=== PATIENT | male | born 1960 | race African-American/Black ===

== ENCOUNTER 2017-04-03 15:01 | Inpatient (IN) | payer OTHER ==
[2017-04-03 15:45] LABS: #Lymphocytes 1.1 thou/uL (1.20-3.40); #Monocytes 0.5 thou/uL (0.11-0.59); #Neutrophils 5.9 thou/uL (1.40-6.50); %Basophils 0.3 % (0.0-1.0); %Eosinophils 0.5 % (0.0-10.0); %Monocytes 6.4 % (0.0-10.0); Hematocrit 41.5 % (42.0-52.0); Mean Platelet Volume 8.7 fL (7.4-10.4); Red Blood Cell (RBC) Count 3.72 mill/uL (4.70-6.10); White Blood Cell (WBC) Count 7.6 thou/uL (4.8-10.8)
[2017-04-03 16:12] LABS: ALT (SGPT) 33 U/L (8-55); AST (SGOT) 276 U/L (5-34); Alkaline Phosphatase 494 U/L (40-150); Anion Gap 22 mmol/L (10-20); BUN (Urea Nitrogen) 9 mg/dL (8.4-25.7); Bilirubin, Total 18.3 mg/dL (0.2-1.2); Calc. Creatinine Clearance 0 mL/min (70-130); Calcium 9.2 mg/dL (7.8-10.44); Carbon Dioxide 25 mmol/L (22-29); Chloride 95 mmol/L (98-107); Estimated GFR-MDRD Greater than 90; Globulin 4.7 g/dL (2.4-3.5); Lipase 46 U/L (8-78)
[2017-04-03] MEDS ORDERED: Ondansetron ODT 8 MG TAB ONE (16:30)
[2017-04-03 17:06] LABS: PTT 38.5 SEC (22.9-36.1); Prothrombin Time 15.6 SEC (12.0-14.7)
[2017-04-03] MEDS ORDERED: Piperacillin/Tazobactam 4.5 GM VIAL ONE (19:07)
[2017-04-03] MEDS ORDERED: Lidocaine 1% (PF) 30 ML VIAL ONE (20:27)
[2017-04-03 22:45] LABS: BF Reference Range Comment Note:
[2017-04-03 23:00] LABS: Troponin I 0.037 ng/mL (< 0.028)
[2017-04-03 23:06] LABS: BF Color Brown
[2017-04-03 23:07] LABS: RBC Count-Automated 18000 /cumm
[2017-04-03 23:20] LABS: Number Cells Counted-Fluids 100
--- NOTE | 2017-04-03 23:25 | ULT ---
RIGHT UPPER QUADRANT ULTRASOUND: 04/03/17 INDICATION: Jaundice with abdominal pain. COMPARISON: Prior CT evaluation dated 07/09/15 and right upper quadrant ultrasound dated 10/23/14. FINDINGS: There is coarse echotexture of the liver with a nodular contour consistent with changes of cirrhosis . No focal hepatic lesion is evident. Small amount of gallbladder sludge is present within the gallbladder. No sonographic Dalal's sign i s reported. Common bile duct measures 4.9 mm. The pancreas is obscured. The right kidney measuring 9.9 x 4.9 x 4.2 cm. Mild ascites is seen within the abdomen. Spectral doppler evaluation of the main portal vein demonstrated some hepatopedal flow. IMPRESSION: 1. Findings of cirrhosis with mild ascites. 2. Hepatopedal flow within the main portal vein. 3. Small amount of gallbladder sludge. POS: [facility]
[2017-04-03 23:35] LABS: #Lymphocytes 0.9 thou/uL (1.20-3.40); #Monocytes 0.5 thou/uL (0.11-0.59); #Neutrophils 5.9 thou/uL (1.40-6.50); %Basophils 0.1 % (0.0-1.0); %Eosinophils 0.2 % (0.0-10.0); %Lymphocytes 12.4 % (21.0-51.0); %Monocytes 7.2 % (0.0-10.0); Hematocrit 36.6 % (42.0-52.0); Mean Platelet Volume 8.3 fL (7.4-10.4); Red Blood Cell (RBC) Count 3.29 mill/uL (4.70-6.10); White Blood Cell (WBC) Count 7.3 thou/uL (4.8-10.8)
[2017-04-04] MEDS ORDERED: Diazepam 10 MG/2 ML SYRINGE ONE (00:37)
[2017-04-04] MEDS ORDERED: ISOVUE-370 76%-LOCM 1 ML ONE (01:26)
[2017-04-04 01:58] LABS: Troponin I 0.032 ng/mL (< 0.028)
[2017-04-04 02:29] LABS: BF Reference Range Comment Note:
[2017-04-04 02:31] LABS: Bilirubin Large (Negative); Blood, Urine Negative (Negative); Glucose, Urine (Dipstick) Negative (Negative); Ketone, Urine 15 mg/dL (Negative); Nitrite Positive (Negative); Protein, Urine (Dipstick) 30 mg/dL (Neg-Trace)
[2017-04-04 02:33] LABS: Bacteria/HPF None Seen HPF (None Seen); RBC/HPF 0-3 HPF (0-3)
[2017-04-04 02:50] LABS: BF Color Yellow
[2017-04-04 02:57] LABS: Hyaline Casts/LPF 0-3 HYALINE CAST LPF (0-3 Hyaline)
[2017-04-04 03:20] LABS: Number Cells Counted-Fluids 100
[2017-04-04] MEDS ORDERED: Ondansetron ODT 4 MG TAB SL PRN (03:21)
[2017-04-04] MEDS ORDERED: Ondansetron HCl/PF 4 MG/2 ML Vial IVP PRN (03:21)
--- NOTE | 2017-04-04 08:22 | CT ---
PRELIMINARY REPORT/[facility]/EMERGENCY AFTER HOURS PROCEDURE: EXAM: CT Angiography Chest With Intravenous Contrast CLINICAL HISTORY: 57 years old, male; Pain and signs and symptoms; Other: Distention; Abdominal pain; Dyspnea and shor tness of breath; Chest pain; Type not specified; Patient HX: 57m with pmhx hepatic cirrhosis C/O abd ominal pain, nausea and abdominal distention for "a while" , unknown duration, pt is poor and reluct ant historian, does not want to be in hospital. States was told by his gi doc that he had a "stomach infection". Afebrile. Pt also C/O chest pain and SOB. TECHNIQUE: Axial computed tomographic angiography images of the chest with intravenous contrast using pulmonary embolism protocol. Coronal reformatted images were created and reviewed. COMPARISON: No relevant prior studies available. FINDINGS: Pulmonary arteries: There is question of a filling defect versus artifact within the first segmental pulmonary artery to the left lower lobe posterior basal segment on axial images 55 and 56 of series 3. There is respiratory motion at this location and artifact is believed to be the more likely. There i s no main pulmonary artery embolism. Aorta: There is a normal anatomic variation bovine aortic arch configuration, with a common origin o f the left common carotid and brachiocephalic arteries. There are mild calcifications of the aorta. No thoracic aortic aneurysm. Lungs: There is near-complete relaxation atelectasis of the left lower lobe and partial atelectasis of the left upper lobe. There is no evidence of pneumonia. Pleural space: There is a moderately large simple fluid density left pleural effusion. No pneumothor ax. Heart: Unremarkable. No cardiomegaly. No significant pericardial effusion. No evidence of RV dysfunc tion. Bones/joints: There are chronic healed rib deformities. No acute fracture. No dislocation. Soft tissues: There is moderate nonspecific gynecomastia. Lymph nodes: Unremarkable. No enlarged lymph nodes. IMPRESSION: 1. There is question of a filling defect versus artifact within the first segmental pulmonary artery to the left lower lobe posterior basal segment on axial images 55 and 56 of series 3. There is resp iratory motion at this location and artifact is believed to be the more likely. There is no main pul monary artery embolism. Consider followup repeat CT chest angiogram when the patient is better able to breath-hold, if there is high clinical suspicion of pulmonary embolism. 2. There is a moderately large simple fluid density left pleural effusion. 3. There is near-complete relaxation atelectasis of the left lower lobe and partial atelectasis of t he left upper lobe. EXAM: CT Abdomen and Pelvis With Intravenous Contrast CLINICAL HISTORY: 57 years old, male; Pain and signs and symptoms; Other: Distention; Abdominal pain; Dyspnea and shor tness of breath; Chest pain; Type not specified; Patient HX: 57m with pmhx hepatic cirrhosis C/O abd ominal pain, nausea and abdominal distention for "a while" , unknown duration, pt is poor and reluct ant historian, does not want to be in hospital. States was told by his gi doc that he had a "stomach infection". Afebrile. Pt also C/O chest pain and SOB. TECHNIQUE: Axial computed tomography images of the abdomen and pelvis with intravenous contrast. COMPARISON: No relevant prior studies available. FINDINGS: Lower thorax: See above. ABDOMEN: Liver: The liver is enlarged and measures 22.5 cm craniocaudal length. There is generally heterogeno us hepatic parenchymal hypodensity which could represent fatty infiltration, or hepatic edema. There are splenic vein varices consistent with portal hypertension. Gallbladder and bile ducts: Unremarkable. No calcified stones. No ductal dilation. Pancreas: Unremarkable. No mass. No ductal dilation. Spleen: No acute process. Adrenals: Unremarkable. No mass. Kidneys and ureters: There is suggestion of mild nonobstructing left nephrolithiasis. There is no hy dronephrosis. No acute process. Stomach and bowel: There is segmental thickening of the right colon which could be due to under dist ention and spasm versus segmental colitis. Mild nonacute colonic diverticulosis is present. There is no obstruction. Appendix: No findings to suggest acute appendicitis. PELVIS: Bladder: Unremarkable. No mass. Reproductive: The prostate gland demonstrates mild nonspecific enlargement. The seminal vesicles are normal. ABDOMEN and PELVIS: Intraperitoneal space: There is a small volume abdominal ascites, likely due to hepatic dysfunction. No free air. Bones/joints: No acute fracture. No dislocation. Soft tissues: There is subcutaneous gas within the ventral abdominal wall consistent with injection sites. Vasculature: There are mild calcifications of the aorta. Lymph nodes: Unremarkable. No enlarged lymph nodes. Other findings: . IMPRESSION: 1. The liver is enlarged and measures 22.5 cm craniocaudal length. There is generally heterogenous h epatic parenchymal hypodensity which could represent fatty infiltration, or hepatic edema. 2. There are splenic vein varices consistent with portal hypertension. 3. There is a small volume abdominal ascites, likely due to hepatic dysfunction. 4. There is segmental thickening of the right colon which could be due to under distention and spasm versus segmental colitis. Thank you for allowing us to participate in the care of your patient. Dictated and Authenticated by: Lex Nam DO 04/04/2017 2:41 AM Central Time ([place] \\T\\ [place]) FINAL REPORT CT PULMONARY ANGIOGRAM WITH IV CONTRAST AND 3D POST PROCESSING CT ABDOMEN AND PELVIS WITH IV CONTRAST I agree with the preliminary report given by Dr. Lex Nam of [facility]. POS: OFF
[2017-04-04] MEDS: D5 1/2 NS w/20 mEq KCL 1,000 ML IV SCH ×2 (11:03→17:44)
[2017-04-04] MEDS: hydrOXYzine 25 MG TAB PO PRN (11:04)
[2017-04-04] MEDS: Diazepam 5 MG TAB PO PRN ×2 (11:04→21:45)
[2017-04-04] MEDS ORDERED: Multivitamins, Adult 10 ML, Thiamine HCl 100 MG, Folic Acid 1 MG in Dextrose 5 %-0.45 %... IV SCH ×4 (12:00)
--- NOTE | 2017-04-04 14:46 | HP ---
CHIEF COMPLAINT: Abdominal pain. HISTORY OF PRESENT ILLNESS: This is a 57-year-old black male, patient of Dr. Kevin Cifuentes'jeffrey who came i nto the emergency room for worsening abdominal pain. He was found to have a recurrence of ascites d ue to his alcoholism and known alcoholic cirrhosis. Also in the ER, they found to have a slightly i ncreased troponin at 0.06 and they were worried he might be having a non-STEMI at that time. Furthe r ER workup included an ultrasound as well as a paracentesis. It only found ascites, did not find a ny abnormal cells or bacteria. He was since admitted for further assistance of his ascites. On com ing up to the floor, he has had some mild tachycardia in the 120s, presumably due to the ascites pus elina on the diaphragm and the pericardium. PAST MEDICAL HISTORY: Positive for alcoholism. Drinks vodka every day. He has got history of alco holic cirrhosis. He was scoped by Dr. Angulo approximately 2 months ago and found to have alcoholic g astritis. No varices noted. Also had a colon polyp removed. He also has a history of alcoholic an emia with B12 deficiency. PAST SURGICAL HISTORY: Positive for an EGD two months ago and a colonoscopy. It was negative for H . pylori in that exam. Also had a previous paracentesis on 11/2015 for his ascites, ALLERGIES: He has no known drug allergies. SOCIAL HISTORY: He lives alone. Drinks vodka every day, also uses cannabis almost daily. Denies a ut IV drug use. He is . No known children at this time. FAMILY HISTORY: No cancers. No GI diseases. MEDICATIONS: Currently, he does not admit to taking any medicines every day. REVIEW OF SYSTEMS: Denies any headache, fever, chills or visual changes. Has not had any nausea bu t has had emesis since he has been here, mostly after trying to sit up from just pressure on his sto mach. Denies any cough or hemoptysis, also denies any hematemesis. Denies any shortness of breath. Has not stated that he has had any constipation. Denies any diarrhea, denies any dysuria or hemat uria. Denies any blood from his rectum. Denies any paresis or paresthesias, although he does have itching on the bottom of his feet. Denies any weakness. Denies any dysarthria or dysphasia. Denie s any auditory or visual hallucinations, any suicidal or homicidal ideations. PHYSICAL EXAMINATION: GENERAL: He is lying in his bed, awake, alert, cooperative, slightly uncomfortable at times. VITAL SIGNS: Temperature is 98.2, pulse 129, respirations 20, blood pressure 177/79. HEENT: Atraumatic, normocephalic cranium. Pupils are equal, round, reactive to light and accommoda tion. Extraocular movements are intact. He does have obvious scleral icterus. NECK: Supple. No JVD, no lymphadenopathy or bruits. He does have poor dentition. LUNGS: Relatively clear but there is a slight rale on the base on the left side. HEART: Shows S1, S2, was slightly tachycardic with no rubs, murmurs, or gallops. ABDOMEN: Distended, minimal tenderness. There is positive ascitic fluid wave. No organs or masses are palpable due to the ascites. GENITOURINARY: Deferred. EXTREMITIES: Show good palpable pulses in all four extremities. No cyanosis, clubbing, or edema. NEUROLOGIC: He is alert and oriented x4. Cranial nerves II-XII are equal and symmetrical. No weak ness, no lack of sensation. LABORATORY DATA: White count 7.3, H\T\H 12 and 36, platelets 95,000. MCV is at 112, neutrophils 80 %, lymphocytes 12%, no bands. Chemistry shows sodium 138, potassium 3.8, chloride 95, bicarb 25, BU N is 9, creatinine 0.68, glucose at 79. AST is elevated at 256, ALT is within normal limits at 33. INR is 1.2, PT is elevated at 15. PTT is elevated at 38. Alcohol level was elevated at 155. Lact ic acid was at 4.9. His troponin initially was 0.06. Then, the second was 0.037, third one was 0.0 32. Peritoneal tap done in the ER showed a yellow straw-colored fluid. White count in that fluid w as 200. There was roughly 27,000 red cells. No bacteria or other abnormal cells. ASSESSMENT: Alcoholism, alcoholic cirrhosis, ascites, and abdominal pain. The patient is admitted and will be given some lactulose and IV fluids. I have consulted Dr. Mckenna from Gastroenterology.
--- NOTE | 2017-04-04 16:03 | PRG ---
DATE OF CONSULTATION: 04/04/2017. CHIEF COMPLAINT: Abdominal discomfort. HISTORY OF PRESENT ILLNESS: Mr. Torres is a 57-year-old man who presented to the emergency room las t night with some abdominal distention associated and shortness of breath with exertion. He reports that he had abdominal pain. He had diagnostic paracentesis performed in the ER, which was negative for SBP. He reports that they came back and also removed some jars of fluid as well. I can find n o documentation of the amount of fluid removed from the ER notes. He did have a CT scan performed o f the abdomen and pelvis and chest in the ER, which only showed a small amount of ascites; however, it is unclear if this possibly was done after a larger volume paracentesis was performed or not. Cu rrently, he reports no abdominal pain. He has had no diarrhea or constipation. He has 1-2 bowel mo vements per day. He has not been taking lactulose recently and states that medicine has been discon tinued from his home medicine list. He has had some shortness of breath, but no chest pain currentl y. He drinks a gallon of vodka every 3 days. No fever. He was seen in GI clinic back in February at which point his alpha fetoprotein was 5.6, which is normal with a normal creatinine at 0.66, total bilirubin of 5.9 and alkaline phosphatase of 370. He had an MRI of the abdomen on 02/18/2017, which showed fatty changes in the liver, no obvious biliary abnormalities, just explain cholestasis. He had no liver mass seen by MRI. His last EGD was in 01/22/2016 which revealed a normal esophagus and portal hypertensive gastropathy. He had colonoscopy with a small serrated adenoma removed. The co millicent was otherwise normal. He does have a history of spontaneous bacterial peritonitis in the past. He had been on furosemide and spironolactone. He developed gynecomastia and breast tenderness with the spironolactone, so this was stopped and he was changed to amiloride with improvement. PAST MEDICAL HISTORY: Alcoholic cirrhosis, spontaneous bacterial peritonitis with ascites, dyslipid emia. PAST SURGICAL HISTORY: EGD and colonoscopy with serrated adenoma removed, paracentesis and cystosco py. FAMILY HISTORY: Negative for GI malignancy. SOCIAL HISTORY: He drinks a gallon of vodka every 3 days. He is used cannabis previously. No smok ing currently. ALLERGIES: No known drug allergies. OUTPATIENT MEDICATIONS: Include amiloride 5 mg twice daily, furosemide 40 mg daily, and possibly pr opranolol 40 mg once a day from what I can tell. REVIEW OF SYSTEMS: Positive for pruritus around the soles of his feet and his abdomen; otherwise ne gative x10 systems reviewed except as stated in the history of present illness. PHYSICAL EXAMINATION: VITAL SIGNS: Temperature 98.4, pulse 86, blood pressure 142/63, oxygen saturations 95% on 2 liters nasal cannula. GENERAL: He is in no acute distress. He is alert and oriented x3. EYES: Eyes have no scleral icterus. OROPHARYNX: Clear without lesions. NECK: No cervical or supraclavicular lymphadenopathy. NEUROLOGIC: He has no asterixis on neurological exam. LUNGS: Clear to auscultation bilaterally. HEART: Regular rate and rhythm. ABDOMEN: Appears distended; however, he is soft and nontender. His bowel sounds are present. EXTREMITIES: Trace lower extremity edema. LABORATORY AND X-RAY FINDINGS: The fluid white blood cell count was 200, serum white blood cell cou nt 7.3, hemoglobin 12.2, and platelets 95,000. INR 1.2, creatinine 0.68, bilirubin 18.3, AST 276, A LT 33, alkaline phosphatase 494, albumin 3.3, lipase 46. Plasma alcohol was 155 yesterday afternoon . IMPRESSION: 1. Abdominal distention and discomfort. He only has mild ascites by the CT scan now. He did have a paracentesis in the emergency room which was negative for spontaneous bacterial peritonitis. His abdomen is now soft and nontender; however, it is large. A CT scan was negative for other acute pat hology. He had some thickening in the right colon, which is likely due to the portal hypertension a nd hypoalbuminemia and nondistention. He has no diarrhea or blood in the stool. 2. Alcoholic cirrhosis of the liver with acute decompensation with his bilirubin acutely rising lik jocelyn secondary to ongoing large volume alcohol use. Treatment now is supportive and alcohol cessatio n is advised. 3. He has had some tachypnea and shortness of breath and this is being evaluated by the primary ser vice. He does have a pleural effusion noted by the CT with associated atelectasis. This is a left- sided pleural effusion and is likely secondary to the liver disease. Again, no significant ascites adequate for paracentesis now is seen. RECOMMENDATIONS: 1. Continue furosemide 40 mg daily. 2. Continue amiloride. 3. He was advised on a low-salt diet. He has been seasoning with garlic salt. 4. He is on banana bag. 5. 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 Thoracentesis could be considered; however, the flu id was likely to rapidly reaccumulate Patient should ambulate and use incentive spirometer.
[2017-04-04] MEDS ORDERED: Ondansetron HCl/PF 4 MG/2 ML Vial SLOW IVP PRN (16:49)
[2017-04-04] MEDS ORDERED: Diazepam 10 MG/2 ML SYRINGE IVP SCH (21:00)
[2017-04-05] MEDS: D5 1/2 NS w/20 mEq KCL 1,000 ML IV SCH (01:32)
[2017-04-05] MEDS: Diazepam 5 MG TAB PO PRN (01:32)
[2017-04-05] MEDS ORDERED: Diazepam 5 MG TAB PO PRN (04:00)
[2017-04-05 05:58] LABS: ALT (SGPT) 25 U/L (8-55); AST (SGOT) 192 U/L (5-34); Alkaline Phosphatase 315 U/L (40-150); Anion Gap 14 mmol/L (10-20); BUN (Urea Nitrogen) 8 mg/dL (8.4-25.7); Bilirubin, Total 15.6 mg/dL (0.2-1.2); Calc. Creatinine Clearance 149 mL/min (70-130); Carbon Dioxide 24 mmol/L (22-29); Chloride 101 mmol/L (98-107); Estimated GFR-MDRD Greater than 90; Globulin 3.6 g/dL (2.4-3.5); Protein, Total 6.1 g/dL (6.0-8.3)
[2017-04-05 06:06] LABS: #Lymphocytes 0.9 thou/uL (1.20-3.40); #Monocytes 0.7 thou/uL (0.11-0.59); #Neutrophils 3.8 thou/uL (1.40-6.50); %Basophils 0.4 % (0.0-1.0); %Eosinophils 0.8 % (0.0-10.0); %Lymphocytes 16.8 % (21.0-51.0); %Monocytes 12.8 % (0.0-10.0); Hematocrit 36.7 % (42.0-52.0); Mean Platelet Volume 8.5 fL (7.4-10.4); Red Blood Cell (RBC) Count 3.24 mill/uL (4.70-6.10); White Blood Cell (WBC) Count 5.4 thou/uL (4.8-10.8)
[2017-04-05] MEDS: hydrOXYzine 25 MG TAB PO PRN (06:13)
[2017-04-05 07:27] VITALS: BMI 31.4
[2017-04-05 12:02] VITALS: BP 148/73; TEMP 97.7
--- NOTE | 2017-04-05 21:52 | DIS ---
ADMITTING DIAGNOSES: Chest pain with possible [id number] myocardial infarction with ascites a nd alcoholism. DISCHARGE DIAGNOSES: Alcoholism, alcoholic gastritis, and alcoholic cirrhosis. HOSPITAL COURSE: The patient is a 57-year-old male, patient of Dr. Kevin Cifuentes, who came in w ith chest discomfort and abdominal pain. Initial troponin was indeterminate and assumed possibly an NSTEMI. Further troponins were all negative and even less on the indeterminate side. EKG showed n o evidence of NSTEMI. The patient had improved symptoms throughout the time. He does admit to poli amaro at least one bottle of vodka daily. He also smokes marijuana daily. Since he was here, he has had no further symptoms of chest discomfort or abdominal discomfort. He received ASE protocol, rec eived multivitamins per IV. He is feeling essentially better than he usually does at home, so the p yoko is to discharge him back to home and have him see Dr. Cifuentes in this next week and follow up to se piper what else he can do to help him as far as his alcoholism. If he has any further return of his shane st symptoms, he is to return to the emergency room, but there is no confirmation of cardiac issues a t this time. A consultation was made to Dr. Mckenna with Gastroenterology, who confirmed here further evaluation of the films that the patient did not have appreciable ascites and had his protuberance was due to adiposity and not ascites. So, no further Gastroenterology interventions were needed.
== END 2017-04-05 14:35 | disposition home or self-care (01) | DRG 433 ==
LOC: ERS 15:01 → 2NO 04-04 02:50
PROVIDERS: ADMIT Family Medicine; ATTEND Family Medicine
PROC: 0W9G3ZX Drainage of Peritoneal Cavity, Percutaneous Approach, Diagnostic (ICD-10-PCS; principal; 2017-04-04)
DX: K70.30 Alcoholic cirrhosis of liver without ascites (principal); J90 Pleural effusion, not elsewhere classified; D69.6 Thrombocytopenia, unspecified; J98.11 Atelectasis; K29.20 Alcoholic gastritis without bleeding; F10.20 Alcohol dependence, uncomplicated; F12.90 Cannabis use, unspecified, uncomplicated; D64.9 Anemia, unspecified; Z86.010 Personal history of colon polyps
CPT/HCPCS: 36415; 49083; 71275; 74177; 76705; 80053; 80307; 81003; 81015; 82140; 82150; 82553; 82945; 83605; 83690; 83735; 84484; 85025; 85060; 85610; 85730; 87070; 87205; 89051; 93005; 94760; 96361; 96365; 96375; 96376; A4216; J1170; J2001; J2270; J2405; J2543; J3360; J3411; J7042; Q0162